=== PATIENT | male | born 1960 | race Caucasian/White ===

== ENCOUNTER 2021-03-03 18:34 | Inpatient (IN) | payer OTHER, SELFPAY ==
[2021-03-03] VITALS (14 sets, daily range): BP systolic 112–143; BP diastolic 59–76; PULSE 51–94; RESP 12–32; TEMP 36.4–38.4; O2SAT 90–95; BMI 27.3
--- NOTE | 2021-03-03 18:46 | DI.RAD.S_ITS ---
PROCEDURE: XR CHEST 1V INDICATIONS: suspected sepsis TECHNIQUE: One view of the chest was acquired. COMPARISON: None. FINDINGS: Surgical changes and devices: None. Lungs and pleura: Patchy airspace opacities in the lungs bilaterally.. No pleural effusions or pneumothorax. Mediastinum: Mediastinal contours appear normal. Heart size is normal. Bones and chest wall: No suspicious bony lesions. Overlying soft tissues appear unremarkable. IMPRESSION: Bilateral lung multifocal pneumonia. Dictated by: Tressa Maravilla MD, PhD on 03/03/2021 at 19:29 Approved by: Tressa Maravilla MD, PhD on 03/03/2021 at 19:30
[2021-03-03 19:04] LABS: COVID19 -Nasal RAPID POSITIVE (Negative)
--- NOTE | 2021-03-03 19:31 | ED_ITS ---
HPI - SOB/Dyspnea General Chief Complaint: Shortness of Breath/Dyspnea Stated Complaint: SOB Time Seen by Provider: 03/03/21 19:22 Source: patient Mode of arrival: Wheelchair Limitations: no limitations History of Present Illness HPI Narrative: Patient not COVID vaccinated. Started feeling fever body aches chills shortness of breath 10 days ago. Worsening recently. Seen at Urgent Care today. 88% room air. Improved with nasal cannula here. No heart attack strokes or diabetes or lung issues in the past. Patient feeling much better with nasal cannula. Related Data Home Medications Medication Instructions Recorded Confirmed No Known Home Medications 03/03/21 03/03/21 Allergies Allergy/AdvReac Type Severity Reaction Status Date / Time No Known Drug Allergies Allergy Verified 03/03/21 18:39 Review of Systems Review of Systems Narrative: GENERAL: Positive for chills, fatigue, malaise, fever, sweats. HEENT: Denies sinus pain, ear pain, sore throat RESPIRATORY: Positive for dyspnea, cough CARDIOVASCULAR: Denies chest pain, palpitations GASTROINTESTINAL: Denies nausea, vomiting, abdominal pain : Denies dysuria, frequency, hematuria MUSCULOSKELETAL: denies muscle or bony pain SKIN: Denies rash, skin lesions NEUROLOGIC: Denies weakness, numbness ROS Unobtainable: All systems reviewed & are unremarkable except as noted in HPI and below Patient History Social History household members: significant other and family Smoking Status: Never smoker Smoking Status: Unknown if ever smoked alcohol intake frequency: holidays/special occasions only Substance Use Type: does not use Exam Narrative Exam Narrative: GENERAL: in no distress, not toxic not dyspneic HEAD: Normocephalic. EYES: Pupils equal round No scleral icterus. ENT: Mucous membranes moist. NECK: Trachea midline. CARDIOVASCULAR: Regular rate and rhythm without murmurs RESPIRATORY: Diminished lung sounds bilaterally. Speaking full sentences. With nasal cannula on. No wheezing. No stridor. Small diffuse rhonchi. GASTROINTESTINAL: Abdomen soft, non-tender EXTREMITIES: No gross deformities. BACK: No flank tenderness. NEURO: AOx4. SKIN: Warm and dry PSYCH: Not anxious, is cooperative Initial Vital Signs Initial Vital Signs: Vital Signs Temperature 101.2 F H 03/03/21 18:39 Pulse Rate 94 H 03/03/21 18:39 Respiratory Rate 15 03/03/21 18:39 Blood Pressure 115/72 03/03/21 18:39 Pulse Oximetry 90 L 03/03/21 18:39 Course Course Course Narrative: No new issues during course of stay. Orders Ordered: ED Orders 03/03/21 18:40 COVID19 -Nasal swab/Pre-Proc Stat 03/03/21 18:46 XR chest 1V Stat EKG-12 Lead Stat 03/03/21 19:20 Complete Blood Count AUTO DIFF Stat Comprehensive Metabolic Panel Stat Lactate (Lactic Acid) Stat Lipase Stat Magnesium Urgent Partial Thromboplastin Time Stat Procalcitonin Stat Prothrombin Time INR Stat 03/03/21 19:45 Blood Culture Stat 03/03/21 20:59 Education, smoking cessation ONGOING Acetaminophen (Acetaminophen 325 Mg Tablet) 650 mg PO Q6HR PRN PRN Reason: Fever/Mild Pain (1-3) Albuterol (Albuterol Hfa Mdi 60 Puff/8 Gm Inhaler) 2 puff INH Q4HR PRN PRN Reason: Shortness Of Breath Or Wheezing Dexamethasone (Dexamethasone 10 Mg/Ml Vial) 6 mg PO DAILY [facility] Enoxaparin Sodium (Enoxaparin 40 Mg/0.4 Ml Syringe) 40 mg SUBCUT DAILY [facility] Sodium Chloride (Normal Saline 0.9%) 1,000 mls @ 60 mls/hr IV CONT BO Last Admin: 03/03/21 23:15 Dose: 60 mls/hr Documented by: HERACLIO Remdesivir 100 mg/ Sodium (Chloride) 250 mls @ 250 mls/hr IV DAILY [facility] Stop: 03/07/21 09:59 Naloxone HCl (Naloxone 0.4 Mg/Ml Vial) 0.2 mg IV Q2MIN PRN PRN Reason: Opiate Reversal Discontinued Medications Acetaminophen (Acetaminophen 325 Mg Tablet) 975 mg PO NOW ONE Stop: 03/03/21 19:37 Last Admin: 03/03/21 19:39 Dose: 975 mg Documented by: NORRIS Dexamethasone (Dexamethasone 10 Mg/Ml Vial) 6 mg IV NOW ONE Stop: 03/03/21 19:39 Last Admin: 03/03/21 19:40 Dose: 6 mg Documented by: NORRIS Sodium Chloride (Normal Saline 0.9%) 1,000 mls @ 1,000 mls/hr IV BOLUS ONE Stop: 03/03/21 19:45 Last Infusion: 03/03/21 20:33 Dose: 0 mls/hr Documented by: Admin: 03/03/21 19:39 Dose: 1,000 mls/hr Documented by: NORRIS Remdesivir 200 mg/ Sodium (Chloride) 250 mls @ 250 mls/hr IV NOW ONE Stop: 03/03/21 20:37 Last Infusion: 03/03/21 21:51 Dose: 0 mls/hr Documented by: Admin: 03/03/21 20:31 Dose: 250 mls/hr Documented by: NORRIS Reevaluation(s) Reevaluation #1: Patient consents verbally for remdesivir. And for admission. Time: 19:38 Consultations Consultation #1: Reviewed with hospitalist, Marycarmen Yates, agrees for admit Time: 20:37 Vital Signs Vital signs: Vital Signs - 8 hr 03/03/21 18:39 03/03/21 18:54 03/03/21 19:00 Temperature 101.2 F H Pulse Rate 94 H 51 L 92 H Respiratory Rate 15 32 H Blood Pressure 115/72 143/76 H 134/65 Pulse Oximetry 90 L 91 91 03/03/21 19:20 03/03/21 19:30 03/03/21 19:39 Temperature 99.9 F H Pulse Rate 91 H 89 Respiratory Rate 28 H 27 H Blood Pressure 120/76 129/74 Pulse Oximetry 95 94 03/03/21 20:00 03/03/21 20:30 03/03/21 20:31 Temperature Pulse Rate 91 H 87 87 Respiratory Rate 14 12 Blood Pressure 132/59 L 131/60 Pulse Oximetry 93 94 93 03/03/21 21:00 03/03/21 21:03 03/03/21 21:30 Temperature 98.4 F Pulse Rate 79 78 Respiratory Rate 19 30 H Blood Pressure 114/63 112/61 Pulse Oximetry 92 93 03/03/21 22:10 Temperature 97.6 F Pulse Rate 78 Respiratory Rate 20 Blood Pressure 117/72 Pulse Oximetry 92 MDM - SOB/Dyspnea Differential Diagnosis Differential diagnosis: Likely community acquired pneumonia and other (COVID pneumonia) Lab Data Result diagrams: 03/03/21 19:20 03/03/21 19:20 Labs: Lab Results 01/25/22 01/25/22 01/25/22 Range/Units 18:40 19:20 19:20 WBC 4.3 L (4.5-11.0) X10^3/uL RBC 5.00 (4.5-5.9) X10^6/uL Hgb 14.5 (13.5-17.5) g/dL Hct 42.4 (41-53) % MCV 84.8 (80-100) fL MCH 29.0 (26-34) PG MCHC 34.2 (30-36) % RDW 12.3 (11.6-14.8) % Plt Count 248 (150-400) X10^3/uL Neut % (Auto) 75.2 H (50-75) % Lymph % (Auto) 11.8 L (25-40) % [place] % (Auto) 12.7 (3-14) % Eos % (Auto) 0.0 L (2-4) % Baso % (Auto) 0.3 (0-2) % Neut # (Auto) 3200 (1354-7661) /uL Lymph # (Auto) 500 L (8337-9461) /uL [place] # (Auto) 500 (0-900) /uL Eos # (Auto) 0 (0-450) /uL Baso # (Auto) 0 (0-100) /uL PT 13.0 H (10.1-12.7) SECONDS INR 1.2 (0.9-1.3) APTT 34 (26.4-36.2) SECONDS Sodium (137-145) mmol/L Potassium (3.4-5.1) mmol/L Chloride (98-107) mmol/L Carbon Dioxide (22-32) mmol/L BUN (9-20) mg/dL Creatinine (0.66-1.25) mg/dL Estimated GFR (>60) mL/min BUN/Creatinine Ratio (6-22) Glucose (70-100) mg/dL Lactate (0.7-2.1) mmol/L Calcium (8.4-10.2) mg/dL Magnesium (1.6-2.3) mg/dL Total Bilirubin (0.2-1.3) mg/dL AST (17-59) IU/L ALT (<50) IU/L Alkaline Phosphatase (38-126) U/L Total Protein (6.3-8.2) g/dL Albumin (3.5-5.0) g/dL Globulin (1.7-4.1) g/dL Albumin/Globulin Ratio (1.0-2.8) Lipase (23-300) U/L Procalcitonin (<0.5) ng/mL SARS-CoV-2 (PCR) Positive H (Negative) 03/03/21 03/03/21 03/03/21 Range/Units 19:20 19:20 19:20 WBC (4.5-11.0) X10^3/uL RBC (4.5-5.9) X10^6/uL Hgb (13.5-17.5) g/dL Hct (41-53) % MCV (80-100) fL MCH (26-34) PG MCHC (30-36) % RDW (11.6-14.8) % Plt Count (150-400) X10^3/uL Neut % (Auto) (50-75) % Lymph % (Auto) (25-40) % [place] % (Auto) (3-14) % Eos % (Auto) (2-4) % Baso % (Auto) (0-2) % Neut # (Auto) (6471-0214) /uL Lymph # (Auto) (6116-6958) /uL [place] # (Auto) (0-900) /uL Eos # (Auto) (0-450) /uL Baso # (Auto) (0-100) /uL PT (10.1-12.7) SECONDS INR (0.9-1.3) APTT (26.4-36.2) SECONDS Sodium 133 L (137-145) mmol/L Potassium 4.0 (3.4-5.1) mmol/L Chloride 101 (98-107) mmol/L Carbon Dioxide 30 (22-32) mmol/L BUN 17 (9-20) mg/dL Creatinine 0.86 (0.66-1.25) mg/dL Estimated GFR > 60.0 (>60) mL/min BUN/Creatinine Ratio 19.8 (6-22) Glucose 123 H (70-100) mg/dL Lactate 1.1 (0.7-2.1) mmol/L Calcium 8.6 (8.4-10.2) mg/dL Magnesium 1.9 (1.6-2.3) mg/dL Total Bilirubin 0.6 (0.2-1.3) mg/dL AST 53 (17-59) IU/L ALT 32 (<50) IU/L Alkaline Phosphatase 46 (38-126) U/L Total Protein 6.4 (6.3-8.2) g/dL Albumin 3.5 (3.5-5.0) g/dL Globulin 2.9 (1.7-4.1) g/dL Albumin/Globulin Ratio 1.2 (1.0-2.8) Lipase 89 (23-300) U/L Procalcitonin 0.09 (<0.5) ng/mL SARS-CoV-2 (PCR) (Negative) Imaging Data Chest x-ray: Radiologist's Impression: [address] [address] XRay Report Signed Patient: Mark Quintero MR#: [id number] : 1960 Acct:[id number] Age/Sex: 60 / M Date of Service: 03/03/21 Loc: Accession Number: [id number] ?? Procedure: XR chest 1V Ordering Provider: Suman Castaneda MD PROCEDURE:? XR CHEST 1V ? INDICATIONS:? suspected sepsis ? TECHNIQUE:? One view of the chest was acquired.? ? COMPARISON:? None. ? FINDINGS:? ? Surgical changes and devices:? None.? ? Lungs and pleura:? Patchy airspace opacities in the lungs bilaterally..? No pleural effusions or pneumothorax.? ? Mediastinum:? Mediastinal contours appear normal.? Heart size is normal.? ? Bones and chest wall:? No suspicious bony lesions.? Overlying soft tissues appear unremarkable.? ? IMPRESSION:? Bilateral lung multifocal pneumonia. ? ? Dictated by: Tressa Maravilla MD, PhD on 03/03/2021 at 19:29 ? ? Approved by: Tressa Maravilla MD, PhD on 03/03/2021 at 19:30 ? ECG Data Interpretation: Sinus rhythm/bigeminy. Rate 91 MDM Narrative Medical decision making narrative: Appropriate for admission. Patient requiring supplemental oxygen for COVID pneumonia. Hypoxia. Patient agrees for admission. Patient consents to receive remdesivir Discharge Plan Departure Patient Disposition: Admitted as Observation Clinical Impression: COVID-19, Hypoxia Admit Date/Time: 03/03/21 22:21 Admit Provider: Marycarmen Yates
[2021-03-03] MEDS: SODIUM CHLORIDE 0.9% 1,000 ML 1000 ML IV (19:39)
[2021-03-03] MEDS: ACETAMINOPHEN 325 MG TABLET 975 MG PO (19:39)
[2021-03-03 19:40] LABS: INR 1.2 (0.9-1.3)
[2021-03-03] MEDS: DEXAMETHASONE 10 MG/ML VIAL 6 MG IV (19:40)
[2021-03-03 19:43] LABS: PTT Partial Thromboplastin Tim 34 SECONDS (26.4-36.2)
[2021-03-03 19:45] LABS: Alanine Aminotransferase 32 IU/L (<50); Albumin 3.5 g/dL (3.5-5.0); Albumin Globulin Ratio 1.2 (1.0-2.8); Alkaline Phosphatase 46 U/L (38-126); Aspartate Aminotransferase 53 IU/L (17-59); BUN Creatinine Ratio 19.8 (6-22); Bilirubin Total 0.6 mg/dL (0.2-1.3); Blood Urea Nitrogen 17 mg/dL (9-20); Calcium 8.6 mg/dL (8.4-10.2); Carbon Dioxide 30 mmol/L (22-32); Chloride 101 mmol/L (98-107); Estimated Glomerular Filt Rate > 60.0 mL/min (>60); Globulin 2.9 g/dL (1.7-4.1); Glucose 123 mg/dL (70-100); HEMOLYSIS < 15 (0-50); Lactate (Lactic Acid) 1.1 mmol/L (0.7-2.1); Lipase 89 U/L (23-300); Sodium 133 mmol/L (137-145); Total Protein 6.4 g/dL (6.3-8.2)
[2021-03-03 20:01] LABS: Procalcitonin 0.09 ng/mL (<0.5)
[2021-03-03 20:02] LABS: Add Manual Diff / Slide Review NO; Basophils Absolute Auto 0 /uL (0-100); Basophils Percent Auto 0.3 % (0-2); Eosinophils Absolute Auto 0 /uL (0-450); Hematocrit 42.4 % (41-53); Hemoglobin 14.5 g/dL (13.5-17.5); Lymphocytes Absolute Auto 500 /uL (1100-4500); Lymphocytes Percent Auto 11.8 % (25-40); Mean Corpuscular HGB Conc 34.2 % (30-36); Mean Corpuscular Volume 84.8 fL (80-100); Monocytes Absolute Auto 500 /uL (0-900); Monocytes Percent Auto 12.7 % (3-14); Neutrophils Absolute Auto 3200 /uL (1500-7000); Neutrophils Percent Auto 75.2 % (50-75); Platelet Count 248 X10^3/uL (150-400); Red Cell Distribution Width 12.3 % (11.6-14.8); White Blood Cell Count 4.3 X10^3/uL (4.5-11.0)
[2021-03-03] MEDS: REMDESIVIR 200 MG in SODIUM CHLORIDE 0.9% 210 ML 250 ML IV (20:31)
[2021-03-03 21:25] LABS: Magnesium 1.9 mg/dL (1.6-2.3)
[2021-03-03] MEDS: SODIUM CHLORIDE 0.9% 1,000 ML 60 ML IV (23:15)
--- NOTE | 2021-03-03 23:23 | PM.HP.1 ---
History of Present Illness History of Present Illness Date Patient Seen: 03/03/21 Time Patient Seen: 21:11 Chief complaint: SOB Narrative: Mark Quintero is a 60-year-old male with no known medical history who presented to the ED today complaining of worsening fever, body aches, chills, and shortness of breath x 10 day.?Patient had a 02saturation of 88% on room air, failed ambulation trial. Patient takes no medications, and is unvaccinated for COVID-19. Patient reports that his partner tested positive for COVID approximately 10 days ago. Patient denies chest pain, abdominal pain, nausea, vomiting, diarrhea, weakness, numbness, changes in vision, loss of taste or smell, or recent injury or trauma. Patient's vitals upon admit febrile 99.9, BP 132/59, HR 91, RR 14, O2 saturation 93% on 3 L nasal cannula. Patient also demonstrated mild hyponatremia sodium 133, procalcitonin and lactic were WNL. Patient's chest x-ray demonstrated bilateral lung multifocal pneumonia, EKG sinus rhythm/bigeminy with a rate of 91. Patient admitted for acute respiratory failure with hypoxia secondary to COVID pneumonia. Patient History Medical History Pneumonia due to COVID-19 virus Surgical History History of vasectomy Family & Social History Family History Other No significant medical problems Social History: household members significant other,family Prior Living Arrangements House Safety & Behavioral: Feels Safe in Current Yes Environment Been Physically Hurt or No Threatened By a Person Suicidal Ideation Description None Suicide Plan Description No Plan Tobacco & Substance use: Smoking Status Never smoker alcohol intake frequency holiday/special occasion Substance Use Type does not use Meds Home Medications and Allergies Home Medications Medication Instructions Recorded Confirmed Type No Known Home Medications 03/03/21 03/03/21 History Allergies Allergy/AdvReac Type Severity Reaction Status Date / Time No Known Drug Allergies Allergy Verified 03/03/21 18:39 Review of Systems Review of Systems Narrative: All 12 point systems reviewed with the patient and are negative except otherwise documented. Exam Vital Signs (past 8 hours): - 03/03/21 18:39 03/03/21 18:54 03/03/21 19:00 Temperature 101.2 F H Pulse Rate 94 H 51 L 92 H Respiratory Rate 15 32 H Blood Pressure 115/72 143/76 H 134/65 Pulse Oximetry 90 L 91 91 03/03/21 19:20 03/03/21 19:30 03/03/21 19:39 Temperature 99.9 F H Pulse Rate 91 H 89 Respiratory Rate 28 H 27 H Blood Pressure 120/76 129/74 Pulse Oximetry 95 94 03/03/21 20:00 03/03/21 20:30 03/03/21 20:31 Temperature Pulse Rate 91 H 87 87 Respiratory Rate 14 12 Blood Pressure 132/59 L 131/60 Pulse Oximetry 93 94 93 03/03/21 21:00 03/03/21 21:03 03/03/21 21:30 Temperature 98.4 F Pulse Rate 79 78 Respiratory Rate 19 30 H Blood Pressure 114/63 112/61 Pulse Oximetry 92 93 03/03/21 22:10 03/03/21 22:35 Temperature 97.6 F Pulse Rate 78 Respiratory Rate 20 Blood Pressure 117/72 Pulse Oximetry 92 94 Oxygen Delivery Method Nasal Cannula Oxygen Flow Rate 3 Narrative Exam Narrative: General: Patient is a well-developed, well-nourished in no distress at this time. HEENT: Normocephalic, atraumatic, extraocular muscles intact, oral pharynx is clear and mucous membranes are dry. Neck is supple and symmetric, trachea is midline, no adenopathy, no thyroid enlargement, nontender, no masses palpated. Negative for JVD Chest: Normal AP diameter and contour without kyphoscoliosis, no nasal flaring, retractions, or tachypneic labored breathing. Lungs: Auscultation of all lung mccarty are clear, equally decreased, coarse, tight, poor air exchange. Cardio: regular rate and rhythm without murmur, rubs, or gallops, no carotid bruit, no cardiac pulsations present. Abdomen: Soft nontender, negative for organomegaly, or masses. Bowel sounds are present in all 4 quadrants without guarding or rebound, no CVA tenderness. Musculoskeletal: Muscle strength and tone are equal within normal limits, no deformity, crepitus, effusions, cyanosis, clubbing or edema present. Full range of motion intact radial and pedal pulses are normal. Skin: Warm dry and intact without rashes, ulcerations or petechiae. Neuro: Alert and orientated x3, strength is +5/5 in all extremities, sensation to touch intact, no gross deficits noted of cranial nerves. Psych: Patient has a well-kept appearance, appropriate affect, mental status attitude thought context and judgment are appropriate for age. Objective Labs Result Diagrams: 03/03/21 19:20 03/03/21 19:20 Labs: Laboratory Results - last 24 hr 03/03/21 03/03/21 03/03/21 18:40 19:20 19:20 WBC 4.3 L RBC 5.00 Hgb 14.5 Hct 42.4 MCV 84.8 MCH 29.0 MCHC 34.2 RDW 12.3 Plt Count 248 Neut % (Auto) 75.2 H Lymph % (Auto) 11.8 L [place] % (Auto) 12.7 Eos % (Auto) 0.0 L Baso % (Auto) 0.3 Neut # (Auto) 3200 Lymph # (Auto) 500 L [place] # (Auto) 500 Eos # (Auto) 0 Baso # (Auto) 0 PT 13.0 H INR 1.2 APTT 34 Sodium Potassium Chloride Carbon Dioxide BUN Creatinine Estimated GFR BUN/Creatinine Ratio Glucose Lactate Calcium Magnesium Total Bilirubin AST ALT Alkaline Phosphatase Total Protein Albumin Globulin Albumin/Globulin Ratio Lipase Procalcitonin SARS-CoV-2 (PCR) Positive H 03/03/21 03/03/21 03/03/21 19:20 19:20 19:20 WBC RBC Hgb Hct MCV MCH MCHC RDW Plt Count Neut % (Auto) Lymph % (Auto) [place] % (Auto) Eos % (Auto) Baso % (Auto) Neut # (Auto) Lymph # (Auto) [place] # (Auto) Eos # (Auto) Baso # (Auto) PT INR APTT Sodium 133 L Potassium 4.0 Chloride 101 Carbon Dioxide 30 BUN 17 Creatinine 0.86 Estimated GFR > 60.0 BUN/Creatinine Ratio 19.8 Glucose 123 H Lactate 1.1 Calcium 8.6 Magnesium 1.9 Total Bilirubin 0.6 AST 53 ALT 32 Alkaline Phosphatase 46 Total Protein 6.4 Albumin 3.5 Globulin 2.9 Albumin/Globulin Ratio 1.2 Lipase 89 Procalcitonin 0.09 SARS-CoV-2 (PCR) Assessment & Plan Assessment & Plan narrative: 1. Acute respiratory failure with hypoxia secondary to COVID pneumonia, acute, present on admission -88% on rm air, failed ambulation trial. -O2 saturation 93% on 3 L nasal cannula -respiratory consult-monitor O2 saturation goal of 88-90% -albuterol HFA inhaler 2 puffs q.4 hours as needed for cough or shortness of breath-avoiding nebulizing treatments -remdesivir 100 mg Q 24 hours, dexamethasone 6 mg q.day -encourage frequent proning -incentive spirometry and Education q.2 hours while awake 2. Hyponatremia, acute, present on admission -likely secondary to acute respiratory failure secondary to COVID pneumonia -sodium 133- will run NS @60cc cautiously monitor for fluid overload in the setting COVID pneumonia. -monitor electrolyte 3. Overweight as evidence by BMI of 27.3, acute on chronic present on admission -dietary consult ordered Code status:Full Surrogate decision maker: Spouse/ COVID PCR:Positive COVID vaccination: Unvaccinated DVT/VTE prophylaxis: Lovenox 40mg & SCD's Disposition: Patient admitted for observation length of stay less than 2 midnights. I have utilized all available immediate resources to obtain, update, or review the patient's current medications. I confirmed that the patient's advanced care plan is present, Code status is documented and/or surrogate decision maker is listed in the patient's medical record. Time Spent With Patient Critical Care time: I spent a total of [] minutes of critical care time on this patient's care today; this time is exclusive of procedural time.
[2021-03-04 05:01] VITALS: TEMP 37
[2021-03-04 08:00] VITALS: BP 119/83; PULSE 76; RESP 17; TEMP 36.4; O2SAT 92
[2021-03-04] MEDS: ENOXAPARIN 40 MG/0.4 ML SYRINGE SUBCUT (09:48)
[2021-03-04] MEDS: DEXAMETHASONE 10 MG/ML VIAL 6 MG PO (09:48)
--- NOTE | 2021-03-04 11:55 | PC.NURSE ---
Addendum entered by Christiane Rivera R.N. 03/04/21 17:41: Patient checked on twice and he states that he likes to stay in the dark as he is meditating. Patient will go to bed when he is tired and he is independent in the room. Patient voiding and denies sob. He states that he is feeling better. Original Note: Assess- Patient is on 3L of o2, he is congested and lung sounds are decreased. He is independent in room and has been heplocked. Patient is drinking alot of water and fluids. 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 He is sitting up in the chair and comfortable.
[2021-03-04 13:45] VITALS: BP 120/87; PULSE 73; RESP 19; TEMP 36.1; O2SAT 99
--- NOTE | 2021-03-04 14:07 | P.PN_ITS ---
Subjective Subjective Date Patient Seen: 03/04/21 Time Patient Seen: 08:00 Interval history: He feels improved, but still feels quite short and breath, and continues to cough. Exam Vital Signs (past 8 hours): - 03/04/21 08:00 Temperature 97.5 F L Pulse Rate 76 Respiratory Rate 17 Blood Pressure 119/83 Pulse Oximetry 92 Oxygen Delivery Method Nasal Cannula Oxygen Flow Rate 3 Narrative Exam Narrative: GEN: moderate respiratory distress PULM: very poor air movement bilaterally Objective Labs Result Diagrams: 03/03/21 19:20 03/03/21 19:20 Labs: Laboratory Results - last 24 hr 03/03/21 03/03/21 03/03/21 18:40 19:20 19:20 WBC 4.3 L RBC 5.00 Hgb 14.5 Hct 42.4 MCV 84.8 MCH 29.0 MCHC 34.2 RDW 12.3 Plt Count 248 Neut % (Auto) 75.2 H Lymph % (Auto) 11.8 L [place] % (Auto) 12.7 Eos % (Auto) 0.0 L Baso % (Auto) 0.3 Neut # (Auto) 3200 Lymph # (Auto) 500 L [place] # (Auto) 500 Eos # (Auto) 0 Baso # (Auto) 0 PT 13.0 H INR 1.2 APTT 34 Sodium Potassium Chloride Carbon Dioxide BUN Creatinine Estimated GFR BUN/Creatinine Ratio Glucose Lactate Calcium Magnesium Total Bilirubin AST ALT Alkaline Phosphatase Total Protein Albumin Globulin Albumin/Globulin Ratio Lipase Procalcitonin SARS-CoV-2 (PCR) Positive H 03/03/21 03/03/21 03/03/21 19:20 19:20 19:20 WBC RBC Hgb Hct MCV MCH MCHC RDW Plt Count Neut % (Auto) Lymph % (Auto) [place] % (Auto) Eos % (Auto) Baso % (Auto) Neut # (Auto) Lymph # (Auto) [place] # (Auto) Eos # (Auto) Baso # (Auto) PT INR APTT Sodium 133 L Potassium 4.0 Chloride 101 Carbon Dioxide 30 BUN 17 Creatinine 0.86 Estimated GFR > 60.0 BUN/Creatinine Ratio 19.8 Glucose 123 H Lactate 1.1 Calcium 8.6 Magnesium 1.9 Total Bilirubin 0.6 AST 53 ALT 32 Alkaline Phosphatase 46 Total Protein 6.4 Albumin 3.5 Globulin 2.9 Albumin/Globulin Ratio 1.2 Lipase 89 Procalcitonin 0.09 SARS-CoV-2 (PCR) [facility] Medical History Pneumonia due to COVID-19 virus Surgical History History of vasectomy Family History Other No significant medical problems Social History household members: significant other and family Smoking Status: Never smoker Assessment & Plan Assessment & Plan narrative: 1. Acute respiratory failure with hypoxia secondary to COVID pneumonia, acute, present on admission -88% on rm air, failed ambulation trial. -O2 saturation 93% on 3 L nasal cannula -respiratory consult-monitor O2 saturation goal of 88-90% -albuterol HFA inhaler 2 puffs q.4 hours as needed for cough or shortness of breath-avoiding nebulizing treatments -remdesivir 100 mg Q 24 hours, dexamethasone 6 mg q.day -encourage frequent proning 2. Hyponatremia, acute, present on admission -monitor daily -stop IV fulids 3. Overweight as evidence by BMI of 27.3, acute on chronic present on admission -dietary consult ordered Time Spent With Patient Critical Care time: I spent a total of [] minutes of critical care time on this patient's care today; this time is exclusive of procedural time.
[2021-03-04 18:15] VITALS: BP 118/88; PULSE 73; RESP 18; TEMP 36.5; O2SAT 93
[2021-03-04 20:38] VITALS: O2SAT 93
[2021-03-04] MEDS: REMDESIVIR 100 MG in SODIUM CHLORIDE 0.9% 230 ML 250 ML IV (20:52)
[2021-03-04 22:00] VITALS: BP 117/69; PULSE 61; RESP 18; TEMP 36.2; O2SAT 93
[2021-03-05] VITALS (7 sets, daily range): BP systolic 104–124; BP diastolic 73–78; PULSE 58–71; RESP 17–18; TEMP 36.2–37.1; O2SAT 91–98
[2021-03-05 05:36] LABS: Hematocrit 40.2 % (41-53); Hemoglobin 13.8 g/dL (13.5-17.5); Mean Corpuscular HGB Conc 34.3 % (30-36); Mean Corpuscular Hemoglobin 29.1 PG (26-34); Platelet Count 280 X10^3/uL (150-400); Red Blood Cell Count 4.73 X10^6/uL (4.5-5.9); Red Cell Distribution Width 12.7 % (11.6-14.8); White Blood Cell Count 7.4 X10^3/uL (4.5-11.0)
[2021-03-05 05:57] LABS: BUN Creatinine Ratio 27.4 (6-22); Blood Urea Nitrogen 20 mg/dL (9-20); Calcium 8.9 mg/dL (8.4-10.2); Carbon Dioxide 32 mmol/L (22-32); Chloride 105 mmol/L (98-107); Estimated Glomerular Filt Rate > 60.0 mL/min (>60); Glucose 146 mg/dL (70-100); HEMOLYSIS < 15 (0-50); Potassium 4.9 mmol/L (3.4-5.1); Sodium 139 mmol/L (137-145)
[2021-03-05] MEDS: ENOXAPARIN 40 MG/0.4 ML SYRINGE SUBCUT (10:10)
[2021-03-05] MEDS: DEXAMETHASONE 10 MG/ML VIAL 6 MG PO (10:10)
[2021-03-05] MEDS: ACETAMINOPHEN 325 MG TABLET 650 MG PO (10:11)
--- NOTE | 2021-03-05 11:10 | PM.PN.1 ---
Subjective Subjective Date Patient Seen: 03/05/21 Time Patient Seen: 08:00 Interval history: Today he feels unchanged from yesterday. He still feels short of breath. When I walked in the room he was off oxygen with O2 sats in low 80s. Exam Vital Signs (past 8 hours): - 03/05/21 04:25 03/05/21 08:40 Temperature 97.6 F 97.9 F Pulse Rate 58 L 64 Respiratory Rate 18 18 Blood Pressure 104/73 124/77 Pulse Oximetry 96 91 Oxygen Delivery Method Nasal Cannula Oxygen Flow Rate 3 Narrative Exam Narrative: GEN: moderate respiratory distress PULM: very poor air movement bilaterally Objective Labs Result Diagrams: 03/05/21 05:16 03/05/21 05:16 Labs: Laboratory Results - last 24 hr 03/05/21 03/05/21 05:16 05:16 WBC 7.4 D RBC 4.73 Hgb 13.8 Hct 40.2 L MCV 85.0 MCH 29.1 MCHC 34.3 RDW 12.7 Plt Count 280 Sodium 139 Potassium 4.9 Chloride 105 Carbon Dioxide 32 BUN 20 Creatinine 0.73 Estimated GFR > 60.0 BUN/Creatinine Ratio 27.4 H Glucose 146 H Calcium 8.9 PFSH Medical History Pneumonia due to COVID-19 virus Surgical History History of vasectomy Family History Other No significant medical problems Social History household members: significant other and family Smoking Status: Never smoker Assessment & Plan Assessment & Plan narrative: 1. Acute respiratory failure with hypoxia secondary to COVID pneumonia, acute, present on admission -88% on rm air, failed ambulation trial. -O2 saturation 93% on 3 L nasal cannula -respiratory consult-monitor O2 saturation goal of 88-90% -albuterol HFA inhaler 2 puffs q.4 hours as needed for cough or shortness of breath-avoiding nebulizing treatments -remdesivir 100 mg Q 24 hours, dexamethasone 6 mg q.day -encourage frequent proning 2. Hyponatremia, acute, present on admission -monitor daily -stop IV fulids 3. Overweight as evidence by BMI of 27.3, acute on chronic present on admission -dietary consult ordered Time Spent With Patient Critical Care time: I spent a total of [] minutes of critical care time on this patient's care today; this time is exclusive of procedural time.
--- NOTE | 2021-03-05 14:11 | PC.NURSE ---
Addendum entered by Christiane Rivera R.N. 03/05/21 15:39: Patient is doing well, he is resting comfortably and denies sob or issues breathing. Original Note: Patient with flat affect this morning, states that he is a bit lonely and he seems to be scared about having covid. LS are diminished throughout and he is on 2l on oxygen now as his sats were 96% on 3L. Patient feels better sitting up in the chair. He has a good appetite and is resting comfortably.
--- NOTE | 2021-03-05 14:58 | CM.IDA ---
Initial DCP Assessment Note Pt is a 60 yo male, resident of [place], arrives with shortness of breath and found to be COVID-19+ and admitted for treatment of COVID-19 pneumonia. PCP: Dr. Jacques Wolfe marydel Payer: [employer] Reviewed chart, placed call into patient's room to introduce self and role. Patient indp in room, states he lives w/spouse, whom has not showed any COVID related symptoms, spouse is isolating at home currently. Encouraged spouse to test WILDA Patient denies DC needs or concerns and appreciative of the call, plans to return home w/spouse upon DC No needs expected from DC planning team although will remain available in case this changes before patient's DC plan: home w/family YASMIN Grant Discharge Planning/Care Management CM Discharge Assessment Start: 03/05/21 14:52 Freq: Status: Active Protocol: Document 03/05/21 14:52 MAHESH (Rec: 03/05/21 14:58 MAHESH [id number]) Discharge Planning Assessment Assigned Interpreter Translator YASMIN Darden DPOA/Assigned Designee Name Anastasia Quintero, spouse Contact Information [phone] Advance Directives? No History Provided By Patient Prior Living Arrangements House Household Members significant other,family Type of transporation used prior to Drives own vehicle admit Independent with ADL's Yes Is patient alert and oriented? Yes Barriers to Discharge No Comment Once medically cleared Discharge Plan Home Transportation Arrangement Family Referrals Initiated None needed Additional Comment At this time
[2021-03-05] MEDS: REMDESIVIR 100 MG in SODIUM CHLORIDE 0.9% 230 ML 250 ML IV (20:50)
[2021-03-06 06:00] VITALS: BP 121/73; PULSE 67; RESP 20; TEMP 36.6; O2SAT 93
[2021-03-06 08:30] VITALS: BP 122/73; PULSE 77; RESP 18; TEMP 36.8; O2SAT 90
[2021-03-06] MEDS: ENOXAPARIN 40 MG/0.4 ML SYRINGE SUBCUT (10:24)
[2021-03-06] MEDS: DEXAMETHASONE 10 MG/ML VIAL 6 MG IV (10:24)
--- NOTE | 2021-03-06 13:21 | PM.PN.1 ---
Subjective Subjective Interval history: Mark Quintero is a 60-year-old male with no known medical history who presented to the ED complaining of worsening fever, body aches, chills, and shortness of breath x 10 day. Patient had a 02 saturation of 88% on room air, failed ambulation trial. Patient takes no medications, and is unvaccinated for COVID-19. Patient reports that his partner tested positive for COVID approximately 10 days ago. Patient's vitals upon admit febrile 99.9, BP 132/59, HR 91, RR 14, O2 saturation 93% on 3 L nasal cannula. Patient also demonstrated mild hyponatremia sodium 133, procalcitonin and lactic were WNL. Patient's chest x-ray demonstrated bilateral lung multifocal pneumonia, EKG sinus rhythm/bigeminy with a rate of 91. His COVID-19 PCR was positive Patient admitted for acute respiratory failure with hypoxia secondary to COVID pneumonia. today when seen by this particular he was sitting up in chair without any respiratory discomfort with good appetite and taste the O2 sats remaining stable on O2 at 3 liters/minute. Exam Vital Signs (past 8 hours): - 03/06/21 06:00 03/06/21 08:30 Temperature 97.8 F 98.3 F Pulse Rate 67 77 Respiratory Rate 20 18 Blood Pressure 121/73 122/73 Pulse Oximetry 93 90 L Oxygen Delivery Method Nasal Cannula Oxygen Flow Rate 2 Narrative Exam Narrative: General: Patient is a well-developed, well-nourished in no distress at this time. HEENT: Normocephalic, atraumatic, extraocular muscles intact, oral pharynx is clear. Neck is supple and symmetric, trachea is midline, no adenopathy, no thyroid enlargement, nontender, no masses palpated. Negative for JVD Thorax: Normal AP diameter and contour without kyphoscoliosis, no nasal flaring, retractions, or tachypneic labored breathing. Lungs: Auscultation of all lung mccarty are clear, equally decreased, coarse, tight, poor air exchange. Cardio: regular rate and rhythm without murmur, rubs, or gallops, no carotid bruit, no cardiac pulsations present. Abdomen: Soft nontender, negative for organomegaly, or masses. Bowel sounds are present in all 4 quadrants without guarding or rebound, no CVA tenderness. Musculoskeletal: Muscle strength and tone are equal within normal limits, no deformity, crepitus, effusions, cyanosis, clubbing or edema present. Full range of motion intact radial and pedal pulses are normal. Skin: Warm dry and intact without rashes, ulcerations or petechiae. Neuro: Alert and orientated x3, strength is +5/5 in all extremities, sensation to touch intact, no gross deficits noted of cranial nerves. Psych: Patient has a well-kept appearance, appropriate affect, mental status attitude thought context and judgment are appropriate for age. Objective Labs Result Diagrams: 03/05/21 05:16 03/05/21 05:16 [facility] Medical History Pneumonia due to COVID-19 virus Surgical History History of vasectomy Family History Other No significant medical problems Social History household members: significant other and family Smoking Status: Never smoker Assessment & Plan Assessment & Plan narrative: 1. Acute respiratory failure with hypoxia secondary to COVID pneumonia, acute, present on admission -88% on rm air, failed ambulation trial in ED. -O2 saturation > 90% on 3 L nasal cannula -monitor O2 saturation goal of 88-90% -albuterol HFA inhaler 2 puffs q.4 hours as needed for cough or shortness of breath-avoiding nebulizing treatments -remdesivir 100 mg Q 24 hours x4 days, dexamethasone 6 mg q.day x10 days -encourage frequent proning -incentive spirometry and Education q.2 hours while awake 2. Hyponatremia, acute, present on admission -likely secondary to acute respiratory failure secondary to COVID pneumonia -on NS @60cc cautiously monitor for fluid overload in the setting COVID pneumonia. -BMP in AM 3. Overweight as evidence by BMI of 27.3, acute on chronic present on admission -dietary consult ordered Code status:Full Surrogate decision maker: Spouse/ COVID PCR:Positive COVID vaccination: Unvaccinated DVT/VTE prophylaxis: Lovenox 40mg & SCD's Disposition: HOME Time Spent With Patient Critical Care time: I spent a total of [] minutes of critical care time on this patient's care today; this time is exclusive of procedural time.
[2021-03-06 13:30] VITALS: O2SAT 94
[2021-03-06] MEDS: ACETAMINOPHEN 325 MG TABLET 650 MG PO (17:42)
[2021-03-06] MEDS: REMDESIVIR 100 MG in SODIUM CHLORIDE 0.9% 230 ML 250 ML IV (22:17)
[2021-03-06 22:32] VITALS: O2SAT 65
[2021-03-06 22:33] VITALS: O2SAT 92
[2021-03-07] VITALS (14 sets, daily range): BP systolic 135–154; BP diastolic 76–93; PULSE 66–86; RESP 18–24; TEMP 36.6–38; O2SAT 90–94
[2021-03-07 05:42] LABS: BUN Creatinine Ratio 20.3 (6-22); Blood Urea Nitrogen 15 mg/dL (9-20); Calcium 8.6 mg/dL (8.4-10.2); Carbon Dioxide 36 mmol/L (22-32); Chloride 103 mmol/L (98-107); Estimated Glomerular Filt Rate > 60.0 mL/min (>60); Glucose 104 mg/dL (70-100); HEMOLYSIS < 15 (0-50); Potassium 4.3 mmol/L (3.4-5.1); Sodium 137 mmol/L (137-145)
[2021-03-07] MEDS: ACETAMINOPHEN 325 MG TABLET 650 MG PO (07:04)
[2021-03-07] MEDS: SODIUM CHLORIDE 0.9% FLUSH 10 ML IV ×2 (08:29→20:04)
[2021-03-07] MEDS: DEXAMETHASONE 10 MG/ML VIAL 6 MG IV (08:29)
[2021-03-07] MEDS: ENOXAPARIN 40 MG/0.4 ML SYRINGE SUBCUT (08:29)
--- NOTE | 2021-03-07 10:38 | PC.NURSE ---
Patient alert, oriented,denies pain, reports he feels his breathing is better. Sats on 6LHFNC 92-93% reports dry non productive cough. Patient able to shower. Independent in room.
--- NOTE | 2021-03-07 12:16 | P.PN_ITS ---
Subjective Subjective Interval history: Mark Quintero is a 60-year-old male with no known medical history who presented to the ED complaining of worsening fever,? body aches, chills, and shortness of breath x 10 day. Patient had a 02 saturation of 88% on room air, failed ambulation trial.? Patient takes no medications, and is unvaccinated for COVID- 19.? Patient reports that his partner tested positive for COVID approximately 10 days ago.? Patient's vitals upon admit febrile 99.9, BP 132/59, HR 91, RR 14, O2 saturation 93% on 3 L nasal cannula.? Patient also demonstrated mild hyponatremia sodium 133, procalcitonin and lactic were WNL.? Patient's chest x-ray demonstrated bilateral lung multifocal pneumonia, EKG sinus rhythm/bigeminy with a rate of 91.? His COVID-19 PCR was positive? Patient admitted for acute respiratory failure with hypoxia secondary to COVID pneumonia. 03/06 When seen by this particular he was sitting up in chair without any respiratory discomfort with good appetite and taste the O2 sats remaining stable on O2 at 3 liters/minute. 03/07 patient states that he continues to feel well. He states his breathing is good he does not feel as short breath with activity. His appetite is still good there is no nausea vomiting abdominal discomfort chest pain. Although the patient states that his breathing is good and his breathing is better it is been necessary to increase his O2 from 3 L up to 6 L this morning. But he was in no respiratory distress when seen. Exam Vital Signs (past 8 hours): - 03/07/21 06:00 03/07/21 07:04 03/07/21 09:00 Temperature 100.4 F H 100.4 F H 98.5 F Pulse Rate 86 84 Respiratory Rate 21 20 Blood Pressure 136/79 137/76 Pulse Oximetry 90 L 93 03/07/21 09:05 03/07/21 09:56 03/07/21 11:54 Temperature 98.5 F Pulse Rate 84 Respiratory Rate 20 Blood Pressure Pulse Oximetry 93 93 Oxygen Delivery Method Room Air Oxygen Flow Rate 6 Narrative Exam Narrative: General:? Patient is a well-developed, well-nourished in no distress at this time. HEENT:? Normocephalic, atraumatic, extraocular muscles intact, oral pharynx is clear.? Neck is supple and symmetric, trachea is midline, no adenopathy, no thyroid enlargement, nontender, no masses palpated.? Negative for JVD Thorax:? Normal AP diameter and contour without kyphoscoliosis, no nasal flaring, retractions, or tachypneic labored breathing. Lungs:? Auscultation of all lung mccarty are clear, equally decreased, coarse, tight, decrease air exchange.? Cardio:? regular rate and rhythm without murmur, rubs, or gallops, no carotid bruit, no cardiac pulsations present. Abdomen:? Soft nontender, negative for organomegaly, or masses.? Bowel sounds are present in all 4 quadrants without guarding or rebound, no CVA tenderness. Musculoskeletal:? Muscle strength and tone are equal within normal limits, no deformity, crepitus, effusions, cyanosis, clubbing or edema present.? Full range of motion intact radial and pedal pulses are normal. Skin:? Warm dry and intact without rashes, ulcerations or petechiae. Neuro:? Alert and orientated x3, strength is +5/5 in all extremities, sensation to touch intact, no gross deficits noted of cranial nerves. Psych:? Patient has a well-kept appearance, appropriate affect, mental status attitude thought context and judgment are appropriate for age Objective Labs Result Diagrams: 03/05/21 05:16 03/07/21 04:55 Labs: Laboratory Results - last 24 hr 03/07/21 04:55 Sodium 137 Potassium 4.3 Chloride 103 Carbon Dioxide 36 H BUN 15 Creatinine 0.74 Estimated GFR > 60.0 BUN/Creatinine Ratio 20.3 Glucose 104 H Calcium 8.6 PFSH Medical History Pneumonia due to COVID-19 virus Surgical History History of vasectomy Family History Other No significant medical problems Social History household members: significant other and family Smoking Status: Never smoker Assessment & Plan Assessment & Plan narrative: 1. Acute respiratory failure with hypoxia secondary to COVID pneumonia, acute, present on admission -88% on rm air in ED. - Because of decreasing O2 sats he is now requiring 6 liters/minute up from 3 liters/minute -albuterol HFA inhaler 2 puffs q.4 hours as needed for cough or shortness of breath-avoiding nebulizing treatments -remdesivir 200mg x1 day then 100 mg Q 24 hours x4 days, dexamethasone 6 mg q.day x10 days -encourage frequent proning -incentive spirometry and Education q.2 hours while awake 2. Hyponatremia, acute, present on admission -likely secondary to acute respiratory failure secondary to COVID pneumonia - corrected with sodium 137 today -dc NS @60cc today -BMP in AM 3. Overweight as evidence by BMI of 27.3, acute on chronic present on admission -dietary consult ordered Code status:Full Surrogate decision maker: Spouse/ COVID PCR:Positive COVID vaccination:? Unvaccinated DVT/VTE prophylaxis: Lovenox 40mg & SCD's Disposition:? HOME Time Spent With Patient Critical Care time: I spent a total of [] minutes of critical care time on this patient's care today; this time is exclusive of procedural time.
--- NOTE | 2021-03-07 18:14 | PC.NURSE ---
Patient weaned down to 3.5L oxygen, denies pain and shortness of breath at rest. Reports his breathing is the better than yesterday. Patient showered and is indep in room.
[2021-03-07] MEDS: REMDESIVIR 100 MG in SODIUM CHLORIDE 0.9% 230 ML 250 ML IV (20:03)
[2021-03-07] MEDS: MELATONIN 3 MG TABLET PO (20:04)
[2021-03-08] VITALS (11 sets, daily range): BP systolic 118–147; BP diastolic 79–88; PULSE 60–76; RESP 17–20; TEMP 36.2–37.3; O2SAT 88–97
[2021-03-08 08:25] LABS: Alanine Aminotransferase 83 IU/L (<50); Albumin 2.7 g/dL (3.5-5.0); Alkaline Phosphatase 45 U/L (38-126); Aspartate Aminotransferase 53 IU/L (17-59); BUN Creatinine Ratio 23.4 (6-22); Bilirubin Total 0.6 mg/dL (0.2-1.3); Blood Urea Nitrogen 18 mg/dL (9-20); Calcium 8.5 mg/dL (8.4-10.2); Carbon Dioxide 33 mmol/L (22-32); Chloride 102 mmol/L (98-107); Estimated Glomerular Filt Rate > 60.0 mL/min (>60); Globulin 2.6 g/dL (1.7-4.1); Glucose 119 mg/dL (70-100); HEMOLYSIS < 15 (0-50); Potassium 4.3 mmol/L (3.4-5.1); Sodium 135 mmol/L (137-145); Total Protein 5.3 g/dL (6.3-8.2)
[2021-03-08] MEDS: DEXAMETHASONE 10 MG/ML VIAL 6 MG IV (08:53)
[2021-03-08] MEDS: ENOXAPARIN 40 MG/0.4 ML SYRINGE SUBCUT (08:54)
[2021-03-08] MEDS: SODIUM CHLORIDE 0.9% FLUSH 10 ML IV ×2 (08:54→21:45)
--- NOTE | 2021-03-08 13:46 | PC.NURSE ---
Patient alert and oriented denies pain. LS clear, turned down o2 to 1L sats 92-93%. Patient using I.S to 2500ml. PAtient reports when up to bathroom sats go down to mid 80's and takes 2 minutes to recover. Patient reports his breathing feels better than yesterday.
--- NOTE | 2021-03-08 15:50 | PM.PN.1 ---
Subjective Subjective Interval history: Mark Quintero is a 60-year-old male with no known medical history who presented to the ED complaining of worsening fever,? body aches, chills, and shortness of breath x 10 day. Patient had a 02 saturation of 88% on room air, failed ambulation trial.? Patient takes no medications, and is unvaccinated for COVID-19.? Patient reports that his partner tested positive for COVID approximately 10 days ago.? Patient's vitals upon admit febrile 99.9, BP 132/59, HR 91, RR 14, O2 saturation 93% on 3 L nasal cannula.? Patient also demonstrated mild hyponatremia sodium 133, procalcitonin and lactic were WNL.? Patient's chest x-ray demonstrated bilateral lung multifocal pneumonia, EKG sinus rhythm/bigeminy with a rate of 91.? His COVID-19 PCR was positive? Patient admitted for acute respiratory failure with hypoxia secondary to COVID pneumonia. 03/06 When seen by this particular he was sitting up in chair without any respiratory discomfort with good appetite and taste the O2 sats remaining stable on O2 at 3 liters/minute. 03/07 ? patient states that he continues to feel well.? He states his breathing is good he does not feel as short breath with activity.? His appetite is still good there is no nausea vomiting abdominal discomfort chest pain.? Although the patient states that his breathing is good and his breathing is better? it is been necessary to increase his O2 from 3 L up to 6 L this morning.? But he was in no respiratory distress when seen. 03/08 per patient account he continues to do well. He denies problems of shortness of breath but it is red is that he has supplemental O2 via nasal cannula in place. He denies chest discomfort, abdominal pain, nausea vomiting, anorexia Exam Vital Signs (past 8 hours): - 03/08/21 08:05 03/08/21 08:53 03/08/21 09:18 Temperature 99.1 F Pulse Rate 76 Respiratory Rate 20 Blood Pressure 133/79 Pulse Oximetry 91 88 L 91 03/08/21 12:20 03/08/21 13:45 03/08/21 13:59 Temperature 97.3 F L Pulse Rate 64 76 Respiratory Rate 19 Blood Pressure 118/81 Pulse Oximetry 97 93 93 03/08/21 14:44 Temperature Pulse Rate Respiratory Rate Blood Pressure Pulse Oximetry 91 Oxygen Delivery Method Room Air Oxygen Flow Rate 1 Narrative Exam Narrative: General:? Patient is a well-developed, well-nourished in no distress at this time. HEENT:? Normocephalic, atraumatic, extraocular muscles intact, oral pharynx is clear.? Neck is supple and symmetric, trachea is midline, no adenopathy, no thyroid enlargement, nontender, no masses palpated.? Negative for JVD Thorax:? Normal AP diameter and contour without kyphoscoliosis, no nasal flaring, retractions, or tachypneic labored breathing. Lungs:? Auscultation of all lung mccarty are clear, equally decreased, coarse, tight, decrease air exchange.? Cardio:? regular rate and rhythm without murmur, rubs, or gallops, no carotid bruit, no cardiac pulsations present. Abdomen:? Soft nontender, negative for organomegaly, or masses.? Bowel sounds are present in all 4 quadrants without guarding or rebound, no CVA tenderness. Musculoskeletal:? Muscle strength and tone are equal within normal limits, no deformity, crepitus, effusions, cyanosis, clubbing or edema present.? Full range of motion intact radial and pedal pulses are normal. Skin:? Warm dry and intact without rashes, ulcerations or petechiae. Neuro:? Alert and orientated x3, strength is +5/5 in all extremities, sensation to touch intact, no gross deficits noted of cranial nerves. Psych:? Patient has a well-kept appearance, appropriate affect, mental status attitude thought context and judgment are appropriate for age Objective Labs Result Diagrams: 03/05/21 05:16 03/08/21 07:40 Labs: Laboratory Results - last 24 hr 03/08/21 07:40 Sodium 135 L Potassium 4.3 Chloride 102 Carbon Dioxide 33 H BUN 18 Creatinine 0.77 Estimated GFR > 60.0 BUN/Creatinine Ratio 23.4 H Glucose 119 H Calcium 8.5 Total Bilirubin 0.6 AST 53 ALT 83 H Alkaline Phosphatase 45 Total Protein 5.3 L Albumin 2.7 L Globulin 2.6 Albumin/Globulin Ratio 1.0 PFSH Medical History Pneumonia due to COVID-19 virus Surgical History History of vasectomy Family History Other No significant medical problems Social History household members: significant other and family Smoking Status: Never smoker Assessment & Plan Assessment & Plan narrative: 1. Acute respiratory failure with hypoxia secondary to COVID pneumonia, acute, present on admission -88% on rm air in ED. -? his oxygenation flactuates with him requiring O2 from 3 up to 6 liters/minute. - this morning he had to be bumped to 5 liters/minute and then now when seen he is been titrated down to 1 liter/minute -albuterol HFA inhaler 2 puffs q.4 hours as needed for cough or shortness of breath-avoiding nebulizing treatments -remdesivir 200mg x1 day then 100 mg Q 24 hours x4 days, dexamethasone 6 mg q.day x10 days -encourage frequent proning -incentive spirometry and Education q.2 hours while awake -Overall feel patient's respiratory failure is improving; especially as evidence by Liter flow down to 1 liter/minute 2. Hyponatremia, acute, present on admission -likely secondary to acute respiratory failure secondary to COVID pneumonia - improved; sodium 135 today -BMP in AM 3. Overweight as evidence by BMI of 27.3, acute on chronic present on admission -dietary consult ordered Code status:Full Surrogate decision maker: Spouse/ COVID PCR:Positive COVID vaccination:? Unvaccinated DVT/VTE prophylaxis: Lovenox 40mg & SCD's Disposition:? HOME Time Spent With Patient Critical Care time: I spent a total of [] minutes of critical care time on this patient's care today; this time is exclusive of procedural time.
[2021-03-08] MEDS: MELATONIN 3 MG TABLET PO (21:45)
[2021-03-09 00:36] VITALS: BP 133/82; PULSE 59; RESP 18; TEMP 36.2; O2SAT 91
[2021-03-09 05:55] VITALS: BP 139/83; PULSE 67; RESP 18; TEMP 36.5; O2SAT 92
[2021-03-09 08:53] LABS: BUN Creatinine Ratio 25.3 (6-22); Blood Urea Nitrogen 20 mg/dL (9-20); Calcium 8.7 mg/dL (8.4-10.2); Carbon Dioxide 33 mmol/L (22-32); Chloride 101 mmol/L (98-107); Estimated Glomerular Filt Rate > 60.0 mL/min (>60); Glucose 100 mg/dL (70-100); HEMOLYSIS < 15 (0-50); Potassium 4.2 mmol/L (3.4-5.1); Sodium 136 mmol/L (137-145)
[2021-03-09 09:18] VITALS: BP 137/83; PULSE 70; RESP 16; TEMP 36.6; O2SAT 88
[2021-03-09] MEDS: ENOXAPARIN 40 MG/0.4 ML SYRINGE SUBCUT (09:23)
[2021-03-09] MEDS: DEXAMETHASONE 10 MG/ML VIAL 6 MG IV (09:24)
[2021-03-09] MEDS: SODIUM CHLORIDE 0.9% FLUSH 10 ML IV (09:24)
[2021-03-09 11:30] VITALS: O2SAT 91
--- NOTE | 2021-03-09 16:02 | PM.DS.1 ---
History of Present Illness History of Present Illness Chief complaint: SOB Narrative: Per Marycarmen Yates: Mark Quintero is a 60-year-old male with no known medical history who presented to the ED today complaining of worsening fever,? body aches, chills, and shortness of breath x 10 day.?Patient had a 02saturation of 88% on room air, failed ambulation trial.? Patient takes no medications, and is unvaccinated for COVID-19.? Patient reports that his partner tested positive for COVID approximately 10 days ago.? Patient denies chest pain, abdominal pain, nausea, vomiting, diarrhea, weakness, numbness, changes in vision, loss of taste or smell, or recent injury or trauma. Patient's vitals upon admit febrile 99.9, BP 132/59, HR 91, RR 14, O2 saturation 93% on 3 L nasal cannula.? Patient also demonstrated mild hyponatremia sodium 133, procalcitonin and lactic were WNL.? Patient's chest x-ray demonstrated bilateral lung multifocal pneumonia, EKG sinus rhythm/bigeminy with a rate of 91.? Patient admitted for acute respiratory failure with hypoxia secondary to COVID pneumonia. Discharge Providers Provider Date of admission: 03/03/21 22:21 Discharge Date: 03/09/21 Consults: 03/09/21 09:29 Consult to Respiratory Therapy Evaluate & Treat Comment: home o2 Physician Instructions: Evaluate and treat Discharge provider: Antoni Claire MD Summary Hospital Course Discharge Diagnosis: 1. Acute hypoxemic respiratory failure secondary to COVID pneumonia 2. Hyponatremia Hospital Course: Mr. Quintero was admitted with COVID pneumonia and require oxygen as he initially desaturated in the 80s. He was unvaccinated. He improved with remdesivir, dexamethasone. On day of discharge he was requring 1L oxygen at rest and 2L with activity and he was denying any significant shortness of breath. He was encouraged to isolate for another week. He was encouraged to get the COVID vaccination once his symptoms resolved. Discharge time 35 minutes Exam Vital Signs (past 8 hours): - 03/09/21 09:18 03/09/21 11:30 Temperature 97.8 F Pulse Rate 70 Respiratory Rate 16 Blood Pressure 137/83 Pulse Oximetry 88 L 91 Oxygen Delivery Method Nasal Cannula Oxygen Flow Rate 1 Narrative Exam Narrative: GEN: no acute distress PULM: clear bilaterally, no wheezes, improving air movement Objective Labs Result Diagrams: 03/05/21 05:16 03/09/21 07:40 Labs: Laboratory Results - last 24 hr 03/09/21 07:40 Sodium 136 L Potassium 4.2 Chloride 101 Carbon Dioxide 33 H BUN 20 Creatinine 0.79 Estimated GFR > 60.0 BUN/Creatinine Ratio 25.3 H Glucose 100 Calcium 8.7 PFSH Medical History Pneumonia due to COVID-19 virus Surgical History History of vasectomy Family History Other No significant medical problems Social History household members: significant other and family Smoking Status: Never smoker Discharge Plan Discharge Plan Patient Disposition: Home Provider Discharge Comment: Mr. Quintero was admitted with COVID pneumonia. He improved with treatment. On day of discharge he was feeling much better, but did require 1L of oxygen at rest and 2-3L with activity. He should isolate for one week. He is encouraged to get the COVID vaccine when his symptoms are gone. Discharge orders & Medications Prescriptions: No Action No Known Home Medications 0RF Diet/Activity/Treatments Diet: Regular Visit Report/Discharge Packet Instructions: DI for COVID-19 (Suspected or Confirmed )
== END 2021-03-09 12:45 | disposition home or self-care (01) | DRG 177 ==
LOC: ED 19:38 → AC 22:23
PROVIDERS: Internal Medicine; Admitting Provider Nurse Practitioner Family; Emergency Provider Emergency Medicine; Visit Provider Nurse Practitioner Family
DX: U07.1 COVID-19 (principal); J12.82 Pneumonia due to coronavirus disease 2019; J96.01 Acute respiratory failure with hypoxia; E87.1 Hypo-osmolality and hyponatremia
CPT/HCPCS: 36415; 71045; 80048; 80053; 83605; 83690; 83735; 84145; 85025; 85027; 85610; 85730; 87040; 87635; 93005; 94618; 94760; 94762; 96361; 96365; 96375; 99285; C9803; A9270; J1100; J1650